=== PATIENT | female | born 1955 | race Hispanic/Latino ===

== ENCOUNTER 2018-04-06 15:14 | Outpatient (CLI) | payer OTHER, SELFPAY ==
[2018-04-06 16:22] LABS: #Basophils 0.1 thou/uL (0.0-0.2); #Eosinphils 0.2 thou/uL (0.0-0.7); #Lymphocytes 3.2 thou/uL (1.20-3.40); #Monocytes 0.5 thou/uL (0.11-0.59); #Neutrophils 3.8 thou/uL (1.40-6.50); %Basophils 1.1 % (0.0-1.0); %Eosinophils 2.2 % (0.0-10.0); %Lymphocytes 41.9 % (21.0-51.0); %Monocytes 5.8 % (0.0-10.0); Hemoglobin 12.5 g/dL (12.0-16.0); Mean Corpuscular Hemoglobin 30.6 pg (27.0-31.0); Mean Corpuscular Volume 87.5 fl (81.0-99.0); Mean Platelet Volume 7.6 fL (7.4-10.4); Platelet Count 269 thou/uL (130-400); Red Blood Cell (RBC) Count 4.09 mill/uL (4.20-5.40); White Blood Cell (WBC) Count 7.7 thou/uL (4.8-10.8)
[2018-04-06 16:36] LABS: Anion Gap 14 mmol/L (10-20); BUN (Urea Nitrogen) 26 mg/dL (9.8-20.1); Calc. Creatinine Clearance 0 mL/min (70-130); Calcium 10.8 mg/dL (7.8-10.44); Carbon Dioxide 26 mmol/L (22-29); Chloride 104 mmol/L (98-107); Estimated GFR-MDRD 76; Glucose 100 mg/dL (70-105); Sodium 140 mmol/L (136-145)
== END 2018-04-06 15:15 | disposition home or self-care (01) ==
LOC: LABBT 15:14
PROVIDERS: ATTEND Surgery
DX: Z01.812 Encounter for preprocedural laboratory examination (principal); D05.12 Intraductal carcinoma in situ of left breast
CPT/HCPCS: 80048; 85025; 93005; 93010

== ENCOUNTER 2018-04-07 07:03 | Day surgery (SDC) | payer OTHER ==
[2018-04-06 15:48] VITALS: BMI 29.2
[2018-04-07] MEDS ORDERED: Bupivacaine/Epinephrine 0.25% 30 ML VIAL ONE (09:17)
[2018-04-07] MEDS ORDERED: Lidocaine 2% 10 ML INJ ONE (09:17)
[2018-04-07] MEDS ORDERED: CEFAZOLIN/Water 2 GM/20 ML SYRINGE ONE (09:57)
--- NOTE | 2018-04-07 10:53 | MMO ---
NEEDLE LOCALIZATION WITH MAMMOGRAPHIC GUIDANCE: DATE: 04/07/18. HISTORY: A 62-year-old female status post stereotactic biopsy for left breast calcifications which revealed DC IS. Needle localization is requested prior to excisional biopsy. FINDINGS: Informed consent obtained prior to the procedure. Calcifications are localized within the left breast. The patient was initially placed in the LM posi tion and the lateral aspect of the left breast was prepped and draped in normal sterile fashion. The skin overlying the entry site was anesthetized with 1% buffered Lidocaine. A 10 cm [place] needle was advanced and locked in place. Of note, the localization clip placed during recent stereotactic biopsy is just inferior to and medial to the targeted calcifications. Once the n eedle was placed and locked, the patient was put in the CC projection. The needle is seen to cydney e the calcifications on both the LM and CC view. On CC imaging, the calcifications are approximately 2-3 cm proximal to the tip of the localization needle. In addition, the post biopsy clip is immedia tely adjacent to the distal tip of the needle. The patient tolerated the procedure well. Results were discussed with Dr. Rankin at 9:10 a.m. 04/07/18. IMPRESSION: Successful needle localization with mammographic guidance of post biopsy clip and breast calcificatio ns. CODE CR POS: LINDA
[2018-04-07] MEDS ORDERED: Fentanyl 100 MCG/2 ML VIAL ONE (10:59)
--- NOTE | 2018-04-07 11:15 | NM ---
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 Left breast cancer. RADIOPHARMACEUTICAL: 440 mCi Technetium 99m filtered sulfur colloid injected in divided dose in the left periareolar breas t. FINDINGS: Planar images of the head, neck, chest, and axillae demonstrate at least 2 foci of increased tracer l ocalization in the left axilla. There is no tracer localization in the internal mammary chains and t he site of the right axillary lymph nodes. IMPRESSION: [place] lymph node (S) in the left axilla. POS: LINDA
[2018-04-07] MEDS ORDERED: Dexamethasone 20 MG/5 ML VIAL ONE (13:04)
[2018-04-07] MEDS ORDERED: Lidocaine 1% PF 5 ML VIAL ONE (13:04)
[2018-04-07] MEDS ORDERED: PROPOFOL 200 MG/20 ML VIAL ONE (13:04)
[2018-04-07] MEDS ORDERED: ePHEDrine/0.9% NaCl/PF SYRINGE 50 mg/10 ml ONE (13:04)
--- NOTE | 2018-04-07 15:43 | MMO ---
SPECIMEN RADIOGRAPH LEFT BREAST: Date: 04-07-18 History: Evaluate surgical excision for localized clip and calcifications. FINDINGS: A radiograph of the left breast specimen is provided. The specimen contains the microcalcifications p reviously biopsied and localized on today's exam. The specimen also contains the localization wire an d a post biopsy clip. IMPRESSION: Specimen radiograph contains the suspicious calcifications as well as the post biopsy clip. POS: LINDA
--- NOTE | 2018-04-08 15:22 | OP ---
DATE OF PROCEDURE: 04/13/2018 PREOPERATIVE DIAGNOSIS: Left breast ductal carcinoma in situ. POSTOPERATIVE DIAGNOSIS: Left breast ductal carcinoma in situ. PROCEDURES: 1. Left breast partial mastectomy after needle localization. 2. Left axillary deep axillary node biopsy using sentinel node protocol. SURGEON: Dr. Rankin. ANESTHESIA: General. ESTIMATED BLOOD LOSS: Minimal. COMPLICATIONS: None. SPECIMEN: Left breast marked with two short superior, one long lateral and sent to path for final di agnosis, left axillary node. INDICATIONS: The patient is a 62-year-old female who presents with high grade left breast DCIS. Und erstands risks and benefits of lumpectomy and sentinel node biopsy. She also understands there are a lternative procedures including mastectomy. She gives consent. TECHNIQUE: The patient is taken to the operating room and laid supine on operating table. After gen eral anesthetic, 5 mL methylene blue dye is infiltrated in the left nipple and massaged for 10 minute s. The patient had already undergone radial sulfur colloid injection in nuclear medicine as well as left breast needle localization of previous biopsy clip. Her left breast, chest, arm, and axilla was prepped and draped in sterile fashion. Curved incision was made in the inferior hairline of the lef t axilla. Neoprobe was used to find an area of increased uptake. There was a blue node with high co unts on the backtable. Background count dropped to near 0. The wound was irrigated and closed using 3-0 Vicryl, 4-0 Monocryl, and Dermabond. Next, a periareolar incision is made in the left breast an d flaps are raised superior, medially, inferolaterally posterior to the needle localization wire. Sp ecimen x-ray reveals the previous clip and abnormality be in the specimen. The wound is irrigated. Local anesthetic is applied. The wound is closed using 3-0 Vicryl, 4-0 Monocryl, and Dermabond. Spe cimen x-ray reveals the clip to be in the specimen. The patient is en route to recovery in stable co ndition. All sponge counts, needle counts, lap counts were correct.
== END 2018-04-07 15:16 | disposition home or self-care (01) ==
LOC: SDC 07:03
PROVIDERS: ATTEND Surgery
PROC: 0HBU0ZZ Excision of Left Breast, Open Approach (ICD-10-PCS; principal; 2018-04-07)
PROC: 0HBU0ZX Excision of Left Breast, Open Approach, Diagnostic (ICD-10-PCS; principal; 2018-04-07)
DX: C50.812 Malignant neoplasm of overlapping sites of left female breast (principal); C77.3 Secondary and unspecified malignant neoplasm of axilla and upper limb lymph nodes; E11.9 Type 2 diabetes mellitus without complications; Z79.899 Other long term (current) drug therapy; Z79.84 Long term (current) use of oral hypoglycemic drugs
CPT/HCPCS: 19281; 76098; 78195; 88307; 88341; 88342; A9541; J1100; J2001; J2704; J3010; Q9968

== ENCOUNTER 2019-04-02 15:07 | Outpatient (CLI) | payer OTHER ==
--- NOTE | 2019-04-02 15:46 | MMO ---
Bilateral MAMMO Bilat Diag [facility]LEIDA. CLINICAL HISTORY: Patient is 63 years old and is seen for screening. The patient has no family history of breast cancer. The patient has a history of Stereotactic Core Biopsy procedure revealed ductal carcinoma in situ. in the left breast in Feb, 2018. The patient has a history of left Stereotatic Biopsy in Feb, 2018 - dcis and left Lumpectomy in 2018. VIEWS: The views performed were: bilateral craniocaudal with tomosynthesis; bilateral mediolateral oblique with tomosynthesis; and bilateral mediolateral. FILMS COMPARED: The present examination has been compared to prior imaging studies performed at [facility] on 03/04/2013, 04/29/2014, 01/17/2017 and 02/24/2018. MAMMOGRAM FINDINGS: There are scattered fibroglandular densities. Finding 1: There are stable benign appearing calcifications seen in both breasts. Finding 2: There is a post-surgical scar seen in the left breast. There are no suspicious masses, suspicious calcifications, or new areas of architectural distortion. IMPRESSION: THERE IS NO MAMMOGRAPHIC EVIDENCE OF MALIGNANCY. A ROUTINE FOLLOW-UP MAMMOGRAM IN 1 YEAR IS RECOMMENDED. THE RESULTS OF THIS EXAM WERE SENT TO THE PATIENT. ACR BI-RADS Category 2 - Benign finding MAMMOGRAPHY NOTE: 1. A negative mammogram report should not delay a biopsy if a dominant of clinically suspicious mass is present. 2. Approximately 10% to 15% of breast cancers are not detected by mammography. 3. Adenosis and dense breasts may obscure an underlying neoplasm.
== END 2019-04-02 15:08 | disposition home or self-care (01) ==
LOC: BICMAMMO 15:07
PROVIDERS: ATTEND Family Medicine
DX: Z08 Encounter for follow-up examination after completed treatment for malignant neoplasm (principal); Z85.3 Personal history of malignant neoplasm of breast; Z98.890 Other specified postprocedural states
CPT/HCPCS: 77066; G0279

== ENCOUNTER 2023-04-19 11:49 | Observation (INO) | payer SELFPAY ==
[2023-04-19 13:20] LABS: #Basophils 0.1 thou/uL (0.0-0.2); #Monocytes 0.3 thou/uL (0.11-0.59); #Neutrophils 11.3 thou/uL (1.40-6.50); %Basophils 0.5 % (0.0-1.0); %Eosinophils 0.1 % (0.0-10.0); %Lymphocytes 10.4 % (21.0-51.0); %Monocytes 2.5 % (0.0-10.0); %Neutrophils 85.8 % (42.0-75.0); Hemoglobin 12.1 g/dL (12.0-16.0); Mean Corpuscular HGB CONC 33.5 g/dL (32.0-36.0); Mean Corpuscular Hemoglobin 30.5 pg (27.0-31.0); Mean Corpuscular Volume 90.9 fl (78.0-98.0); Mean Platelet Volume 10.3 fL (7.4-10.4); Platelet Count 231 10x3/uL (130-400); RBC Distribution Width 12.4 % (11.5-14.5); Red Blood Cell (RBC) Count 3.97 mill/uL (4.20-5.40); White Blood Cell (WBC) Count 13.1 10x3/uL (4.8-10.8)
[2023-04-19] MEDS ORDERED: Meclizine HCl 25 MG TAB ONE (13:29)
[2023-04-19] MEDS ORDERED: Diazepam 10 MG/2 ML SYRINGE ONE (13:29)
[2023-04-19 14:48] LABS: ALT (SGPT) 20 U/L (8-55); AST (SGOT) 18 U/L (5-34); Albumin 4.7 g/dL (3.4-4.8); Alkaline Phosphatase 62 U/L (40-110); Anion Gap 19 mmol/L (10-20); BUN (Urea Nitrogen) 20 mg/dL (9.8-20.1); Bilirubin, Total 0.4 mg/dL (0.2-1.2); Calc. Creatinine Clearance 0 mL/min (70-130); Calcium 10.3 mg/dL (7.8-10.44); Carbon Dioxide 19 mmol/L (23-31); Chloride 105 mmol/L (98-107); Estimated GFR 79; Glucose 135 mg/dL (80-115); Potassium 4.2 mmol/L (3.5-5.1); Protein, Total 7.7 g/dL (5.8-8.1); Sodium 139 mmol/L (136-145)
[2023-04-19 14:58] LABS: Bacteria/HPF None Seen HPF (None Seen); Bilirubin Negative (Negative); Blood, Urine Negative (Negative); CAUTI Indications for Culture Alt mental st,lethar; Clarity Clear (Clear); Glucose, Urine (Dipstick) Normal (Negative); Ketone, Urine Negative (Negative); Leukocyte Negative Leu/uL (Negative); Nitrite Negative (Negative); Protein, Urine (Dipstick) 70 mg/dL (Neg-Trace); RBC/HPF 0-3 HPF (0-3); Specific Gravity, Urine 1.023 (1.002-1.036); Squamous Epithelial 0-3 HPF (0-3); Urobilinogen Normal mg/dL (Less than 2); WBC/HPF 0-3 HPF (0-3); pH, Urine 5.5 (5.0-9.0)
[2023-04-19 14:59] LABS: Urine Culture Reflex No No
[2023-04-19] MEDS ORDERED: Promethazine HCl 12.5 MG in Sodium Chloride 0.9% 50 ML IVPB SCH (16:15)
[2023-04-19] MEDS ORDERED: Acetaminophen 325 MG TAB PO PRN (18:39)
[2023-04-19] MEDS ORDERED: Ondansetron PF 4 MG/2 ML Vial IVP PRN (18:39)
[2023-04-19] MEDS ORDERED: hydrALAZINE 20 MG/ML VIAL SLOW IVP PRN (18:39)
[2023-04-19] MEDS ORDERED: Labetalol HCl 100 MG/20 ML VIAL SLOW IVP PRN (18:39)
[2023-04-19] MEDS ORDERED: HumaLOG 300 UNITS/3 ML VIAL SC PRN ×2 (18:41)
[2023-04-19] MEDS ORDERED: Glucagon 1 MG/ML KIT IM PRN (18:41)
[2023-04-19] MEDS ORDERED: Dextrose 5% in Water 1,000 ML IV PRN (18:41)
[2023-04-19] MEDS ORDERED: Dextrose 50% Abboject 50 ML SYRINGE SLOW IVP PRN (18:41)
[2023-04-19] MEDS ORDERED: Aspirin 81 mg Enteric Coated Tablet PO SCH (19:00)
[2023-04-19 20:20] VITALS: BMI 29.4
[2023-04-20 04:59] LABS: #Basophils 0.1 thou/uL (0.0-0.2); #Eosinphils 0.1 thou/uL (0.0-0.7); #Monocytes 0.4 thou/uL (0.11-0.59); #Neutrophils 4.3 thou/uL (1.40-6.50); %Basophils 0.8 % (0.0-1.0); %Monocytes 5.5 % (0.0-10.0); %Neutrophils 54.4 % (42.0-75.0); Hemoglobin 10.4 g/dL (12.0-16.0); Mean Corpuscular HGB CONC 33.1 g/dL (32.0-36.0); Mean Corpuscular Hemoglobin 30.2 pg (27.0-31.0); Mean Corpuscular Volume 91.3 fl (78.0-98.0); Mean Platelet Volume 10.6 fL (7.4-10.4); Platelet Count 216 10x3/uL (130-400); RBC Distribution Width 12.7 % (11.5-14.5); Red Blood Cell (RBC) Count 3.44 mill/uL (4.20-5.40)
[2023-04-20 05:06] LABS: Hemoglobin A1c 6.5 % (4.0-6.0)
[2023-04-20 05:27] LABS: Anion Gap 11 mmol/L (10-20); BUN (Urea Nitrogen) 15 mg/dL (9.8-20.1); Calc. Creatinine Clearance 87 mL/min (70-130); Calcium 9.5 mg/dL (7.8-10.44); Carbon Dioxide 24 mmol/L (23-31); Cardiac Risk 5.4 (Less than 4.5); Chloride 107 mmol/L (98-107); Cholesterol 178 mg/dl (< 200 Desired); Estimated GFR 90; Glucose 122 mg/dL (80-115); HDL Cholesterol 33 mg/dL (>60 Neg Risk); LDL Cholesterol, Calculated 99 mg/dL; Potassium 3.4 mmol/L (3.5-5.1); Sodium 139 mmol/L (136-145); Triglycerides 231 mg/dL (Less than 150)
[2023-04-20] MEDS ORDERED: Electrolyte Replacement Protocol 1 EACH FS SCH (07:30)
[2023-04-20] MEDS ORDERED: Electrolyte Replacement Protocol FS PRN (08:00)
[2023-04-20] MEDS: metFORMIN 500 MG TAB PO SCH (08:58)
[2023-04-20] MEDS ORDERED: Potassium Chloride 20 MEQ TAB PO SCH (09:15)
[2023-04-20] MEDS ORDERED: Lactated Ringer's 1,000 ML IV SCH (10:00)
[2023-04-20] MEDS: Meclizine HCl 25 MG TAB PO SCH ×3 (12:00→21:48)
[2023-04-20] MEDS ORDERED: Atorvastatin Calcium 40 MG TAB PO SCH (21:00)
[2023-04-20] MEDS ORDERED: Sertraline 25 MG TAB PO SCH (21:00)
[2023-04-21 05:51] LABS: #Basophils 0.1 thou/uL (0.0-0.2); #Eosinphils 0.2 thou/uL (0.0-0.7); #Monocytes 0.4 thou/uL (0.11-0.59); #Neutrophils 3.4 thou/uL (1.40-6.50); %Basophils 0.9 % (0.0-1.0); %Lymphocytes 38.9 % (21.0-51.0); %Monocytes 6.4 % (0.0-10.0); %Neutrophils 50.5 % (42.0-75.0); Hemoglobin 10.3 g/dL (12.0-16.0); Mean Corpuscular HGB CONC 33.1 g/dL (32.0-36.0); Mean Corpuscular Hemoglobin 30.7 pg (27.0-31.0); Mean Corpuscular Volume 92.8 fl (78.0-98.0); Mean Platelet Volume 10.2 fL (7.4-10.4); Platelet Count 191 10x3/uL (130-400); Red Blood Cell (RBC) Count 3.35 mill/uL (4.20-5.40); White Blood Cell (WBC) Count 6.7 10x3/uL (4.8-10.8)
[2023-04-21 06:16] LABS: Anion Gap 13 mmol/L (10-20); BUN (Urea Nitrogen) 16 mg/dL (9.8-20.1); Calc. Creatinine Clearance 82 mL/min (70-130); Calcium 9.5 mg/dL (7.8-10.44); Carbon Dioxide 22 mmol/L (23-31); Chloride 112 mmol/L (98-107); Estimated GFR 83; Glucose 126 mg/dL (80-115); Sodium 143 mmol/L (136-145)
[2023-04-21] MEDS ORDERED: Prenatal Vitamin 1 TAB PO SCH (09:00)
[2023-04-21] MEDS: metFORMIN 500 MG TAB PO SCH (09:07)
[2023-04-21] MEDS: Meclizine HCl 25 MG TAB PO SCH (09:07)
[2023-04-21 11:54] VITALS: BP 155/77; TEMP 97.7
== END 2023-04-21 13:25 | disposition home or self-care (01) ==
LOC: ERS 11:49 → 2SE 18:13
PROVIDERS: ADMIT Internal Medicine; ATTEND Nurse Practitioner Family
DX: R42 Dizziness and giddiness (principal); I10 Essential (primary) hypertension; E11.9 Type 2 diabetes mellitus without complications; E78.2 Mixed hyperlipidemia; I08.1 Rheumatic disorders of both mitral and tricuspid valves; F32.A Depression, unspecified; Z85.3 Personal history of malignant neoplasm of breast; Z79.84 Long term (current) use of oral hypoglycemic drugs; Z79.899 Other long term (current) drug therapy
CPT/HCPCS: 36415; 36416; 51701; 70450; 70551; 71045; 80048; 80053; 80061; 81001; 83036; 84484; 85025; 93005; 93306; 93880; 96365; 96375; G0378; J2550; J3360; J7120

== ENCOUNTER 2023-06-02 11:24 | Outpatient (CLI) | payer SELFPAY ==
[2023-06-02 13:41] LABS: #Basophils 0.1 10x3/uL (0.0-0.2); #Eosinphils 0.3 10x3/uL (0.0-0.5); #Monocytes 0.3 10x3/uL (0.0-1.1); #Neutrophils 3.6 10x3/uL (1.5-8.4); %Eosinophils 3.7 % (0.0-6.0); %Lymphocytes 36.4 % (18.0-47.0); %Monocytes 5.1 % (0.0-10.0); %Neutrophils 53.4 % (40.0-75.0); Hemoglobin 11.1 g/dL (12.0-15.5); Mean Corpuscular HGB CONC 32.6 g/dL (32.0-36.0); Mean Corpuscular Volume 91.9 fl (81.6-98.3); Mean Platelet Volume 10.6 fl (7.4-10.4); Platelet Count 237 10x3/uL (150-450); RBC Distribution Width 12.7 % (11.5-14.5); White Blood Cell (WBC) Count 6.7 10x3/uL (3.5-10.5)
[2023-06-02 14:25] LABS: Anion Gap 16 mmol/L (10-20); BUN (Urea Nitrogen) 13 mg/dL (9.8-20.1); Calc. Creatinine Clearance 0 mL/min (70-130); Carbon Dioxide 24 mmol/L (23-31); Chloride 108 mmol/L (98-107); Estimated GFR 82; Glucose 116 mg/dL (80-115); Potassium 4.2 mmol/L (3.5-5.1); Sodium 144 mmol/L (136-145)
== END 2023-06-02 11:25 | disposition home or self-care (01) ==
LOC: LABBT 11:24
PROVIDERS: ATTEND Surgery
DX: Z01.818 Encounter for other preprocedural examination (principal); C50.912 Malignant neoplasm of unspecified site of left female breast
CPT/HCPCS: 80048; 85025; 93005; 93010

== ENCOUNTER 2023-06-05 08:35 | Day surgery (SDC) | payer SELFPAY ==
[2023-06-02 12:53] VITALS: BMI 27.1
[2023-06-05] MEDS ORDERED: Midazolam HCl 2 mg/2 ml Vial ONE (09:33)
[2023-06-05] MEDS ORDERED: fentaNYL 50 mcg/mL 1 mL Vial ONE (09:33)
[2023-06-05] MEDS ORDERED: Ropivacaine 0.5% HCl/PF (150 MG/30 ML VIAL) ONE ×2 (09:33→11:00)
[2023-06-05] MEDS ORDERED: fentaNYL PF 100 MCG/2 ML SYRINGE ONE (10:55)
[2023-06-05] MEDS ORDERED: Famotidine/PF 20 mg/2ml Vial ONE (10:55)
[2023-06-05] MEDS ORDERED: Ropivacaine 2% HCl/PF (20 MG/10 ML VIAL) ONE (11:00)
[2023-06-05] MEDS ORDERED: Sodium Chloride 0.9% 100 ML ONE (11:07)
[2023-06-05] MEDS ORDERED: CEFAZOLIN 2 GM VIAL ONE (11:07)
[2023-06-05] MEDS ORDERED: ePHEDrine Sulfate 50 MG/10 ML VIAL ONE (11:12)
[2023-06-05] MEDS ORDERED: Ondansetron PF 4 MG/2 ML Vial ONE (11:12)
[2023-06-05] MEDS ORDERED: Dexamethasone 20 MG/5 ML VIAL ONE (11:12)
[2023-06-05] MEDS ORDERED: Lidocaine 1% PF 5 ML VIAL ONE (11:12)
[2023-06-05] MEDS ORDERED: PROPOFOL 200 MG/20 ML VIAL ONE (11:12)
[2023-06-05] MEDS ORDERED: HYDROcodone/Acetaminophen 5/325 mg Tablet ONE (15:06)
== END 2023-06-05 15:44 | disposition home or self-care (01) ==
LOC: SDC 08:35
PROVIDERS: ATTEND Surgery
PROC: 0HBU0ZZ Excision of Left Breast, Open Approach (ICD-10-PCS; principal; 2023-06-05)
DX: S21.002A Unspecified open wound of left breast, initial encounter (principal); C50.912 Malignant neoplasm of unspecified site of left female breast; Z17.0 Estrogen receptor positive status [ER+]; E11.9 Type 2 diabetes mellitus without complications; I10 Essential (primary) hypertension; R92.1 Mammographic calcification found on diagnostic imaging of breast; Z79.84 Long term (current) use of oral hypoglycemic drugs; Z79.899 Other long term (current) drug therapy; X58.XXXA Exposure to other specified factors, initial encounter
CPT/HCPCS: 88305; 88309; 88341; 88342; 88361; J1100; J2250; J2405; J2704; J2795; J3010; J3490; S0028

== ENCOUNTER 2023-07-28 07:36 | Outpatient (CLI) | payer OTHER ==
[2023-07-28] MEDS ORDERED: Iopamidol 370 76% 100 ML VIAL ONE (14:08)
== END 2023-07-28 07:37 | disposition home or self-care (01) ==
LOC: CT 07:36
PROVIDERS: ATTEND Internal Medicine Hematology & Oncology
DX: C50.512 Malignant neoplasm of lower-outer quadrant of left female breast (principal); R91.1 Solitary pulmonary nodule; R59.0 Localized enlarged lymph nodes; K76.89 Other specified diseases of liver; D36.7 Benign neoplasm of other specified sites
CPT/HCPCS: 71260; 74177; 78306; 82565; A9503

== ENCOUNTER 2023-09-18 14:15 | Outpatient (CLI) | payer BC | END 2023-09-18 14:16 | disposition home or self-care (01) | LOC: ULT 14:15 | PROVIDERS: ATTEND Internal Medicine Hematology & Oncology | DX: Z51.11 Encounter for antineoplastic chemotherapy (principal); C50.512 Malignant neoplasm of lower-outer quadrant of left female breast; I07.1 Rheumatic tricuspid insufficiency; Z79.899 Other long term (current) drug therapy | CPT/HCPCS: 93306 ==

== ENCOUNTER 2023-10-17 10:07 | Day surgery (SDC) | payer BC ==
[2023-10-16 10:35] VITALS: BMI 29.2
[2023-10-17] MEDS ORDERED: PROPOFOL 20 ML ONE ×2 (11:34→12:14)
[2023-10-17] MEDS ORDERED: fentaNYL PF 100 MCG/2 ML SYRINGE ONE (11:34)
[2023-10-17] MEDS ORDERED: Bupivacaine 0.25% HCL 30 ML VIAL ONE (11:37)
[2023-10-17] MEDS ORDERED: EPINEPHrine 1 MG/ML VIAL ONE (11:37)
[2023-10-17] MEDS ORDERED: Lidocaine 2% PF 5 ML VIAL ONE (11:37)
[2023-10-17] MEDS ORDERED: Sodium Chloride 0.9% 100 ML ONE (11:54)
[2023-10-17] MEDS ORDERED: CEFAZOLIN 2 GM VIAL ONE (11:54)
[2023-10-17] MEDS ORDERED: Ondansetron PF 4 MG/2 ML Vial ONE (12:09)
[2023-10-17] MEDS ORDERED: Promethazine HCl 25 MG/ML VIAL IM PRN (12:22)
[2023-10-17] MEDS ORDERED: Ondansetron HCl/PF 4 MG/2 ML Vial IVP PRN (12:22)
[2023-10-17] MEDS ORDERED: ePHEDrine Sulfate 50 MG/10 ML VIAL ONE (12:28)
[2023-10-17] MEDS ORDERED: Acetaminophen 500 MG TAB ONE (14:36)
== END 2023-10-17 15:15 | disposition home or self-care (01) ==
LOC: SDC 10:07 → EDSTATUS 10:31 → SDC 15:15
PROVIDERS: ATTEND Surgery
PROC: 05HM33Z Insertion of Infusion Device into Right Internal Jugular Vein, Percutaneous Approach (ICD-10-PCS; principal; 2023-10-17)
DX: C50.912 Malignant neoplasm of unspecified site of left female breast (principal); E11.9 Type 2 diabetes mellitus without complications; I10 Essential (primary) hypertension
CPT/HCPCS: 71045; C1788; J0171; J1642; J2001; J2405; J2704; J3490; S0020

== ENCOUNTER 2024-05-04 12:01 | Outpatient (CLI) | payer BC | END 2024-05-04 12:02 | disposition home or self-care (01) | LOC: ULT 12:01 | PROVIDERS: ATTEND Internal Medicine Hematology & Oncology | DX: Z51.11 Encounter for antineoplastic chemotherapy (principal); C50.512 Malignant neoplasm of lower-outer quadrant of left female breast; R00.1 Bradycardia, unspecified; Z79.899 Other long term (current) drug therapy | CPT/HCPCS: 93306 ==

== ENCOUNTER 2024-08-02 08:40 | Outpatient (CLI) | payer BC ==
[2024-08-02] MEDS ORDERED: Iopamidol 370 76% 100 ML VIAL ONE (09:49)
== END 2024-08-02 08:41 | disposition home or self-care (01) ==
LOC: BICCT 08:40
PROVIDERS: ATTEND Internal Medicine Hematology & Oncology
DX: C50.512 Malignant neoplasm of lower-outer quadrant of left female breast (principal); R91.1 Solitary pulmonary nodule
CPT/HCPCS: 71260; 82565; Q9967

== ENCOUNTER 2024-11-08 08:58 | Outpatient (CLI) | payer BC | END 2024-11-08 08:59 | disposition home or self-care (01) | LOC: BICMAMMO 08:58 | PROVIDERS: ATTEND Surgery | DX: Z08 Encounter for follow-up examination after completed treatment for malignant neoplasm (principal); Z85.3 Personal history of malignant neoplasm of breast | CPT/HCPCS: 77066; G0279 ==